=== PATIENT | female | born 1985 | race African-American/Black ===

== ENCOUNTER 2019-07-06 04:29 | Emergency (ER) | payer SELFPAY ==
[~2019-07-06] VITALS: Ht 165.1 cm; Wt 90.0 kg
[2019-07-06] MEDS ORDERED: SODIUM CHLORIDE 0.9% 1,000 ML IV ONE (06:06)
[2019-07-06] MEDS ORDERED: DEXAMETHASONE 10 MG/ML VIAL IV ONE (06:30)
[2019-07-06] MEDS ORDERED: KETOROLAC 30MG/ML VIAL IV ONE (06:30)
[2019-07-06 06:44] LABS: CHLORIDE 110 mEq/L (98-107)
[2019-07-06 06:46] LABS: BASOPHILS % 0.4 % (0.0-2.0); EOSINOPHILS % 1.9 % (0.0-5.0); HEMATOCRIT. 38.9 % (36.0-48.0); HEMOGLOBIN. 12.8 g/dL (12.0-16.0); LYMPHOCYTES % 21.7 % (20.0-50.0); MEAN CORPUSCULAR HEMOGLOBIN 28.1 pg (28.0-32.0); MEAN CORPUSCULAR VOLUME 85.4 fL (81.0-99.0); MEAN PLATELET VOLUME 8.1 fl (7.4-10.4); MONOCYTES % 6.1 % (2.0-8.0); NEUTROPHILS % 69.9 % (40.0-76.0); PLATELET 273 x1000/uL (130-400); RED BLOOD CELL COUNT 4.56 mill/uL (4.2-5.4); RED CELL DISTRIBUTION WIDTH 14.3 % (11.6-14.6)
[2019-07-06 06:49] LABS: ETHANOL BLOOD < 10 mg/dL
[2019-07-06 06:58] LABS: *AMPHETAMINES SCREEN URINE NEGATIVE (NEGATIVE); *BARBITURATES SCREEN URINE NEGATIVE (NEGATIVE); *BENZODIAZEPINES SCREEN URINE NEGATIVE (NEGATIVE); *COCAINE SCREEN URINE NEGATIVE (NEGATIVE); METHADONE URINE SCREEN NEGATIVE (NEGATIVE); OPIATES URINE SCREEN NEGATIVE (NEGATIVE)
[2019-07-06 06:59] LABS: CANNABINOID URINE SCREEN NEGATIVE (NEGATIVE)
[2019-07-06 07:07] LABS: HCG SCREEN NEGATIVE
[2019-07-06 07:13] LABS: PHENCYCLIDINE URINE SCREEN PRESUMTIVE POSITIVE (NEGATIVE)
[2019-07-06 08:06] VITALS: BP 101/71
== END 2019-07-06 08:08 | disposition home or self-care (01) ==
LOC: ER 04:29
DX: R51 Headache (principal); R07.89 Other chest pain; F16.129 Hallucinogen abuse with intoxication, unspecified; R03.0 Elevated blood-pressure reading, without diagnosis of hypertension
CPT/HCPCS: 36415; 71045; 80053; 80305; 80320; 81025; 83690; 83880; 84484; 84703; 85025; 93005; 96374; 96375; 99284; J1100; J1885; J7030; Z7610; G0480

== ENCOUNTER 2019-07-07 01:40 | Emergency (ER) | payer SELFPAY ==
[~2019-07-07] VITALS: Ht 162.6 cm; Wt 105.0 kg
[2019-07-07] MEDS ORDERED: KETOROLAC 60MG/2ML VIAL IM STA (04:11)
[2019-07-07] MEDS ORDERED: METOCLOPRAMIDE HCL 10MG/2ML VIAL IM ONE (04:15)
[2019-07-07 04:36] LABS: BASOPHILS % 0.3 % (0.0-2.0); HEMATOCRIT. 37.5 % (36.0-48.0); HEMOGLOBIN. 12.2 g/dL (12.0-16.0); LYMPHOCYTES % 18.4 % (20.0-50.0); MEAN CORPUSCULAR HEMOGLOBIN 27.9 pg (28.0-32.0); MEAN CORPUSCULAR VOLUME 85.8 fL (81.0-99.0); MEAN PLATELET VOLUME 8.1 fl (7.4-10.4); MONOCYTES % 6.2 % (2.0-8.0); NEUTROPHILS % 75.1 % (40.0-76.0); PLATELET 281 x1000/uL (130-400); RED BLOOD CELL COUNT 4.37 mill/uL (4.2-5.4); RED CELL DISTRIBUTION WIDTH 14.5 % (11.6-14.6)
[2019-07-07 04:41] LABS: CHLORIDE 108 mEq/L (98-107)
[2019-07-07 08:40] VITALS: BP 131/81
== END 2019-07-07 08:40 | disposition home or self-care (01) ==
LOC: ER 01:40
DX: R51 Headache (principal); R07.89 Other chest pain; Z59.0 Homelessness; Z88.0 Allergy status to penicillin
CPT/HCPCS: 36415; 80048; 84484; 85025; 93005; 96372; 99284; J1885; J2765